=== PATIENT | female | born 1960 | race Caucasian/White ===

== ENCOUNTER 2024-11-03 11:42 | Emergency (ER) | payer MEDICAID, SELFPAY ==
[2024-11-03 12:05] VITALS: BP 110/73; PULSE 65; RESP 19; TEMP 36.9; O2SAT 94
--- NOTE | 2024-11-03 12:13 | EDNOTE_ITS ---
<Statement entered by Marie Baker MD - 11/03/24 14:58> As co-signing physician, I was present and available for consult prn. I concur with the plan and care as documented by the midlevel provider. ED Wound/Laceration-RME/HPI General Chief Complaint: Wound/Laceration Stated Complaint: LACERATION LEFT 2ND FINGER Time Seen by Provider: 11/03/24 11:50 Arrival date/time: 11/03/24 11:42 Limitations: no limitations RME / HPI RME / HPI narrative: 63-year-old female here for laceration she sustained while using a gill box operator to her left index. States she is worried about the bleeding. Not on Plavix aspirin or blood thinners. Unknown last Tdap. No history of diabetes. States she was hoping she would just need glue but based on the bleeding think she may need sutures. Related Data Home Medications ?Medication ?Instructions ?Recorded ?Confirmed hydroxyzine HCl 50 mg tablet 50 mg PO DAILY #0 tabs 03/08/19 loratadine 10 mg tablet (Claritin) 10 mg PO QDAY #0 ta bs 01/21/14 03/08/19 baclofen 20 mg tablet 20 mg PO BID 03/08/19 paroxetine HCl 40 mg tablet 40 mg PO QDAY 03/08/19 Previous Rx's ?Medication ?Instructions ?Recorded ibuprofen 600 mg tablet 1 tab PO Q8HR PRN INFLAMMATI ON #30 01/22/17 tabs ibuprofen 600 mg tablet 600 mg PO Q6H #30 tabs 02/14 Allergies Allergy/AdvReac Type Severity Reaction Status Date / Time No Known Allergies Allergy Verified 11/03/24 11:45 Review of Systems Review of Systems Systems Reviewed: All systems reviewed, normal except as documented Constitutional Constitutional: Denies fever(s) Musculoskeletal Musculoskeletal: Reports as per HPI Integumentary/Breasts Skin/Breast: Reports as per HPI ED Exam General Limitations: Present no limitations General appearance: Present alert and in no apparent distress Eye Eye exam: Present normal appearance, PERRL and EOMI Respiratory Respiratory exam: Present normal lung sounds bilaterally Cardiovascular Cardiovascular exam: Present regular rate, normal rhythm and normal heart sounds Extremities Exam Extremities exam: Present full ROM and tenderness (1.5cm laceration to dip palmar aspect of left second digit) Skin Skin exam: Present warm, dry, intact and normal color Course Quality Measures none Orders Category Date Time Status Set Up Suture Tray STAT Care 11/03/24 12:13 Completed Lidocaine 1% 20 ml [Xylocaine 1% 20 ML] Med 11/03/24 12:13 Discontinued 20 ml INFL X1 ONE TET,DIP/PERT AC (Adult)-Tdap [Boostrix Adult (Tdap) Med 11/03/24 12:13 Discontinued Vacc] 0.5 ml IMI .ONCE ONE Vital Signs Vital signs: Vital Signs Temperature 98.4 F 11/03/24 12:05 Pulse Rate 65 11/03/24 12:05 Respiratory Rate 19 11/03/24 12:05 Blood Pressure 110/73 11/03/24 12:05 Pulse Oximetry (%) 94 L 11/03/24 12:05 Oxygen Delivery Method Room Air 11/03/24 12:05 PROCEDURES: Laceration Laceration 1: Site: hand Side (If applicable): left Size (cm): 1.5 Description: linear Depth: simple, single layer Local Anesthetic: lidocaine 1% Amount of anesthesia used (mL): 4 Pre-repair: wound explored and irrigated extensively Skin layer closed with: nylon Suture size (cm): 5-0 Number of sutures: 9 Technique: simple, interrupted Wound / Laceration Patient data External records reviewed:: [facility] previous records Clinical information provided by:: patient Social determinants that could affect healthcare access:: other (specify) (Does not have medical coverage does not really go to the doctor) Patient has the following chronic illnesses:: None How is presenting disease/condition affected by chronic disease/condition?: no chronic disease Evaluation data The following diagnostics were reviewed and interpreted by me:: other (specify) (None) Lab and/or radiology exams considered but not ordered:: No imaging warranted at this time Interpretation Summary: No labs or imaging warranted Medications / Prescriptions Medications or Prescriptions considered but not ordered:: Narcotics antibiotics were considered however likely to resolve and heal properly Medication administrations:: Medication Administration History Discontinued Medications Diphtheria/Tetanus/Acell Pertussis (Diphth,Pertuss(Acell),Tet Vac 0.5 Ml Syr- Adult) 0.5 ml IMi .ONCE ONE Stop: 11/03/24 12:14 Last Admin: 11/03/24 13:16 Dose: Not Given Documented By: AJAY Non-Admin Reason: Patient Refused Lidocaine HCl (Lidocaine Hcl 1% 20 Ml Vial) 20 ml INFL X1 ONE Stop: 11/03/24 12:14 Last Admin: 11/03/24 13:16 Dose: 20 ml Documented By: AJAY Comments: USED BY PROVIDER See above Consultations Consultation(s) initiated? (list below): No Diagnosis Wound Differential Diagnosis: laceration, abrasion, avulsion of skin and other (Dislocation) Most likely diagnosis given after review of the tests above:: Left second digit laceration repaired with sutures Under immunized status Admission Indicated Admission indicated?: not indicated Admission Request Was there a request for admission?: No Disposition Plan Disposition Plan: Discharge Discharge Attestation Discharge Attestation: The patient and all family members were given an opportunity to ask questions and understood the discharge instructions. Discharge instructions specifically effects, indications for sooner follow up or return to the emergency department, and the expected course of current diagnosis. Patient condition: Stable Discharge Plan Plan Patient Disposition: HOME (Self Care) Discharge Disposition comment: fu in 5-7days for suture removal Prescriptions/Referrals Prescriptions/Med Rec: No Action hydroxyzine HCl 50 MG tablet 50 mg PO DAILY Qty: 0 loratadine [Claritin] 10 MG tablet 10 mg PO QDAY Qty: 0 ibuprofen 600 MG tablet 1 tab PO Q8HR PRN (Reason: INFLAMMATION) Qty: 30 0RF baclofen 20 mg tablet 20 mg PO BID Patient Comments: TAKE ONE TABLET BY MOUTH TWICE DAILY WITH FOOD OR MILK FOR MUSCLE SPASMS paroxetine HCl 40 mg Tablet 40 mg PO QDAY ibuprofen 600 mg tablet 600 mg PO Q6H Qty: 30 0RF Referrals: No Primary/Family,Physician [Primary Care Provider] - In 1 week Problem List Clinical Impression: Laceration of finger of left hand, Underimmunized Patient/Caregiver Discharge Instructions Education Materials: ED Laceration: All Closures, ED Laceration, Old: Not Sutured Print Language: Gu[place]an Stand Alone Forms: Sissy Award Info., Patient Portal Info Letter PA/DEWAXER Supervising Physician PA/DEWAXER Supervising Physician: Dr. Baker
[2024-11-03] MEDS: LIDOCAINE HCL 1% 20 ML VIAL INFL (13:16)
== END 2024-11-03 13:17 | disposition home or self-care (01) ==
PROVIDERS: Emergency Provider Emergency Medicine
DX: S61.211A Laceration without foreign body of left index finger without damage to nail, initial encounter (principal); W27.8XXA Contact with other nonpowered hand tool, initial encounter
CPT/HCPCS: 12001; 99284; J3490